=== PATIENT | male | born 2000 | race Two or more races ===

== ENCOUNTER 2024-04-04 03:13 | Emergency (ER) | payer SELFPAY ==
[~2024-04-04] VITALS: Ht 172.7 cm; Wt 99.0 kg
[2024-04-04] MEDS ORDERED: AUG875T PO (05:32)
[2024-04-04 05:35] VITALS: BP 123/71; PULSE 79; RESP 20; TEMP 98.6; O2SAT 96
[2024-04-04] MEDS: DexAMETHasone SOD PHOS 10MG/1ML VIAL INJ IM ONE (05:59)
== END 2024-04-04 05:53 | disposition home or self-care (01) ==
LOC: ER 03:13
DX: J06.9 Acute upper respiratory infection, unspecified (principal)
CPT/HCPCS: 96372; 99283; J1100